=== PATIENT | female | born 1985 | race Caucasian/White ===

== ENCOUNTER 2024-01-06 22:23 | Inpatient (IN) | payer OTHER ==
[~2024-01-06 22:23] MED LIST: Iopamidol 300 61% 100 ML VIAL FS ONE
[2024-01-06] MEDS ORDERED: Morphine 4 MG/ML VIAL ONE (23:06)
[2024-01-06] MEDS ORDERED: Ondansetron PF 4 MG/2 ML Vial ONE (23:06)
[2024-01-06 23:22] LABS: #Basophils 0.06 10x3/uL (0.0-0.2); #Eosinophils 0.18 10x3/uL (0.0-0.5); #Monocytes 0.85 10x3/uL (0.0-1.1); #Neutrophils 11.28 10x3/uL (1.5-8.4); %Basophils 0.4 % (0.0-2.0); %Eosinophils 1.2 % (0.0-6.0); %Lymphocytes 17.3 % (18.0-47.0); %Monocytes 5.7 % (0.0-10.0); %Neutrophils 75.1 % (40.0-75.0); Hematocrit 40.1 % (34.9-44.5); Hemoglobin 13.4 g/dL (12.0-15.5); Mean Corpuscular HGB CONC 33.4 g/dL (32.0-36.0); Mean Corpuscular Hemoglobin 29.6 pg (27.0-33.0); Mean Corpuscular Volume 88.5 fL (81.6-98.3); Mean Platelet Volume 9.7 fL (7.4-10.4); Platelet Count 322 10x3/uL (150-450); RBC Distribution Width 12.5 % (11.5-14.5); Red Blood Cell (RBC) Count 4.53 10x6/uL (3.90-5.03)
[2024-01-06] MEDS ORDERED: diphenhydrAMINE 50 MG/ML VIAL ONE (23:30)
[2024-01-06] MEDS ORDERED: Famotidine/PF 20 mg/2ml Vial ONE (23:30)
[2024-01-06] MEDS ORDERED: methylPREDNISolone Sod Succ 40 MG VIAL ONE (23:30)
[2024-01-06 23:32] LABS: ALT (SGPT) 19 U/L (8-55); AST (SGOT) 19 U/L (5-34); Albumin 4.1 g/dL (3.5-5.0); Alkaline Phosphatase 118 U/L (40-110); Anion Gap 15 mmol/L (10-20); BUN (Urea Nitrogen) 11 mg/dL (7.0-18.7); Bilirubin, Total 0.4 mg/dL (0.2-1.2); Calc. Creatinine Clearance 0 mL/min (70-130); Calcium 9.5 mg/dL (7.8-10.44); Carbon Dioxide 20 mmol/L (22-29); Chloride 104 mmol/L (98-107); Estimated GFR 115; Globulin 4.1 g/dL (2.4-3.5); Glucose 112 mg/dL (70-105); Lipase 36 U/L (8-78); Potassium 3.2 mmol/L (3.5-5.1); Protein, Total 8.2 g/dL (6.0-8.3); Sodium 136 mmol/L (136-145)
[2024-01-06] MEDS ORDERED: Potassium Chloride 20 MEQ TAB ONE (23:44)
[2024-01-06 23:48] LABS: BHCG - Serum Negative (NEGATIVE); Pregs Control Background? CLEAR/WHITE (CLR/WHITE); Pregs Control Bar Appear? YES (CONTROL BAR)
[2024-01-07 00:08] LABS: Bilirubin Neg (Negative); Blood, Urine 10 (Negative); Clarity Clear (Clear); Glucose, Urine (Dipstick) Normal (Negative); Ketone, Urine Negative (Negative); Leukocyte Negative (Negative); Nitrite Negative (Negative); Protein, Urine (Dipstick) Negative (Neg-Trace); Urobilinogen Normal mg/dL (Less than 2)
[2024-01-07 00:37] LABS: Bacteria/HPF 2+ HPF (None Seen); CAUTI Indications for Culture Pelvic or flank pain; RBC/HPF 0-3 HPF (0-3); Squamous Epithelial 0-3 HPF (0-3); WBC/HPF 0-3 HPF (0-3)
[2024-01-07 00:38] LABS: Urine Culture Reflex No No
[2024-01-07] MEDS ORDERED: fentaNYL 50 mcg/mL 1 mL Vial ONE ×2 (00:48→08:18)
[2024-01-07] MEDS ORDERED: Ondansetron PF 4 MG/2 ML Vial ONE ×2 (01:07→08:18)
[2024-01-07] MEDS ORDERED: Piperacillin/Tazobactam 4.5 GM VIAL ONE (01:55)
[2024-01-07 03:51] VITALS: BMI 31.8
[2024-01-07] MEDS ORDERED: Ondansetron PF 4 MG/2 ML Vial IVP PRN (03:51)
[2024-01-07] MEDS: Lactated Ringer's 1,000 ML IV SCH (03:54)
[2024-01-07] MEDS ORDERED: FLU (Fluarix Triv) TS24-25(6MOS UP)/PF 45 MCG/0.5 ML Syringe IM ONE (04:15)
[2024-01-07] MEDS: Morphine 4 MG/ML VIAL SLOW IVP PRN (04:16)
[2024-01-07] MEDS: Piperacillin/Tazobactam 3.375 GM in Sodium Chloride 0.9% 100 ML IVPB SCH (06:17)
[2024-01-07] MEDS: Ketorolac Tromethamine 30 MG (1 mL) VIAL IVP PRN (06:17)
[2024-01-07] MEDS ORDERED: Bupivacaine HCl 0.5%/Epinephrine 1:200,000/PF 30 ml Vial ONE (08:11)
[2024-01-07] MEDS ORDERED: Dexamethasone 4 mg/ml Vial ONE (08:18)
[2024-01-07] MEDS ORDERED: PROPOFOL 20 ML ONE (08:18)
[2024-01-07] MEDS ORDERED: Rocuronium Bromide 10 MG/ML (10ML VIAL) ONE (08:18)
[2024-01-07] MEDS ORDERED: Lidocaine 2% PF 5 ML VIAL ONE (08:18)
[2024-01-07] MEDS ORDERED: SUGAMMADEX SODIUM 200 MG/2 ML VIAL ONE (08:18)
[2024-01-07] MEDS ORDERED: SUCCINYLCHOLINE/SOD CL,ISO/PF 200 MG/10 ML SYRINGE FS ONE (08:19)
[2024-01-07] MEDS ORDERED: Scopolamine 1 mg/72 hour Patch TD SCH (09:00)
[2024-01-07] MEDS ORDERED: PHENYLEPHRINE-NS 100 MCG/ML 10 ML SYRINGE ONE (09:29)
[2024-01-07] MEDS ORDERED: Potassium Chloride 20 MEQ TAB PO SCH (09:30)
[2024-01-07] MEDS ORDERED: Acetaminophen 500 MG TAB PO SCH ×2 (09:30→15:30)
[2024-01-07] MEDS ORDERED: traMADol HCl 50 MG TAB PO SCH (09:30)
[2024-01-07 11:02] VITALS: TEMP 97.7
[2024-01-07] MEDS: Acetaminophen 500 MG TAB PO SCH (11:23)
[2024-01-07] MEDS: Potassium Chloride 20 MEQ TAB PO SCH (11:24)
[2024-01-07] MEDS: traMADol HCl 50 MG TAB PO SCH (11:25)
[2024-01-07] MEDS: Scopolamine 1 mg/72 hour Patch TD SCH (11:27)
[2024-01-07] MEDS ORDERED: Ibuprofen 200 MG TAB PO PRN (12:00)
[2024-01-07] MEDS ORDERED: traMADol HCl 50 MG TAB PO PRN (15:00)
[2024-01-07 16:41] VITALS: BP 106/69
[2024-01-08] MEDS ORDERED: Levothyroxine Sodium 112 MCG TAB PO SCH (06:00)
[2024-01-08] MEDS ORDERED: Fluticasone Propionate Nasal Spray 16 gm Bottle NASAL PRN (09:00)
[2024-01-08] MEDS ORDERED: Sertraline 100 MG TAB PO SCH (09:00)
[2024-01-08] MEDS ORDERED: Loratadine 10 MG TAB PO SCH (09:00)
[2024-01-08] MEDS ORDERED: Venlafaxine HCl XR 150 MG CAP PO SCH (09:00)
== END 2024-01-07 13:50 | disposition home or self-care (01) | DRG 399 ==
LOC: CSHERS 22:23 → CSHTELE 01-07 02:02
PROVIDERS: ADMIT Specialist; ATTEND Specialist
PROC: 3E033XZ Introduction of Vasopressor into Peripheral Vein, Percutaneous Approach (ICD-10-PCS; principal; 2024-01-07)
PROC: 0DTJ4ZZ Resection of Appendix, Percutaneous Endoscopic Approach (ICD-10-PCS; 2024-01-07)
DX: K35.80 Unspecified acute appendicitis (principal); E03.9 Hypothyroidism, unspecified; L90.5 Scar conditions and fibrosis of skin; G89.29 Other chronic pain; Z90.49 Acquired absence of other specified parts of digestive tract; Z88.5 Allergy status to narcotic agent; Z79.899 Other long term (current) drug therapy; Z79.890 Hormone replacement therapy; Z88.8 Allergy status to other drugs, medicaments and biological substances; E87.6 Hypokalemia
CPT/HCPCS: 36415; 74177; 80053; 81001; 83605; 83690; 84703; 85025; 88304; 96361; 96365; 96375; 96376; A4649; J1100; J1200; J1885; J2272; J2405; J2543; J2704; J2919; J3010; J3490; J7120; Q9967